=== PATIENT | male | born 1985 ===

== ENCOUNTER 2017-09-09 19:55 | Emergency (ER) | payer SELFPAY ==
[~2017-09-09] VITALS: Ht 167.6 cm; Wt 60.0 kg
[2017-09-09 20:09] VITALS: BP 131/90; PULSE 135; RESP 12; TEMP 98.8; O2SAT 97
--- NOTE | 2017-09-09 20:14 | PD ---
HPI Chief Complaint: Psychiatric Symptoms Time Seen by Provider: 20:08 Travel History International Travel<30 days: No Contact w/Intl Traveler<30days: No Traveled to known affect area: No History of Present Illness HPI 32-year-old white male presents emergency department under Bran act by PD. Patient had got into an argument with family. He apparently had been drinking and or doing drugs. He had made suicidal statements that he would go out and drown himself. The patient here is uncooperative. He is unwilling to answer questions. There is no evidence of trauma. He ambulates freely. [facility] Past Medical History Medical History: Unable to Obtain Tetanus Vaccination: Unknown Past Surgical History Surgical History: Unable to Obtain Social History Alcohol Use: Yes Tobacco Use: No Allergies-Medications (Allergen,Severity, Reaction): Coded Allergies: No Allergy Information Available (Unverified , 09/09/17) Review of Systems ROS Limitations: Intoxication, Uncooperative Physical Exam Narrative GENERAL: Well-nourished, well-developed patient. Patient appears intoxicated. Patient is uncooperative. There is no evidence of trauma. Ambulates freely SKIN: Warm and dry. HEAD: Normocephalic and atraumatic. EYES: No scleral icterus. No injection or drainage. ENT: No nasal drainage noted. Mucous membranes pink. Airway patent. NECK: Supple, trachea midline. Moves head freely without obvious discomfort. CARDIOVASCULAR: Regular rate and rhythm without murmurs, gallops, or rubs. RESPIRATORY: Breath sounds equal bilaterally. No accessory muscle use. GASTROINTESTINAL: Abdomen soft, non-tender, nondistended. EXTREMITIES: No cyanosis or edema. BACK: Nontender without obvious deformity. No CVA tenderness. NEURO: Patient is alert and oriented. no sensorimotor deficits. Nonfocal. Slurred speech. PSYCH: No delusions. No auditory or visual hallucinations. Data Data Last Documented VS Vital Signs Date Time Temp Pulse Resp B/P (MAP) Pulse Ox O2 Delivery O2 Flow Rate FiO2 09/09/17 22:24 100 18 102/59 (73) 96 Room Air 09/09/17 20:09 98.8 Orders Orders Complete Blood Count With Diff (09/09/17 20:10) Comprehensive Metabolic Panel (09/09/17 20:10) Thyroid Stimulating Hormone (09/09/17 20:10) Psych Screen (09/09/17 20:10) Drug Screen, Random Urine (09/09/17 20:10) Alcohol (Ethanol) (09/09/17 20:10) Haloperidol Inj (Haldol Inj) (09/09/17 20:45) Lorazepam Inj (Ativan Inj) (09/09/17 20:45) Labs Laboratory Tests Test 09/09/17 20:10 09/09/17 23:53 White Blood Count 3.3 TH/MM3 Red Blood Count 4.71 MIL/MM3 Hemoglobin 14.5 GM/DL Hematocrit 42.8 % Mean Corpuscular Volume 90.8 FL Mean Corpuscular Hemoglobin 30.8 PG Mean Corpuscular Hemoglobin Concent 33.9 % Red Cell Distribution Width 12.2 % Platelet Count 178 TH/MM3 Mean Platelet Volume 8.1 FL Neutrophils (%) (Auto) 36.5 % Lymphocytes (%) (Auto) 52.7 % Monocytes (%) (Auto) 10.0 % Eosinophils (%) (Auto) 0.6 % Basophils (%) (Auto) 0.2 % Neutrophils # (Auto) 1.2 TH/MM3 Lymphocytes # (Auto) 1.8 TH/MM3 Monocytes # (Auto) 0.3 TH/MM3 Eosinophils # (Auto) 0.0 TH/MM3 Basophils # (Auto) 0.0 TH/MM3 CBC Comment DIFF FINAL Differential Comment Blood Urea Nitrogen 5 MG/DL Creatinine 0.87 MG/DL Random Glucose 115 MG/DL Total Protein 7.5 GM/DL Albumin 4.3 GM/DL Calcium Level 8.3 MG/DL Alkaline Phosphatase 26 U/L Aspartate Amino Transf (AST/SGOT) 28 U/L Alanine Aminotransferase (ALT/SGPT) 26 U/L Total Bilirubin 0.4 MG/DL Sodium Level 144 MEQ/L Potassium Level 3.2 MEQ/L Chloride Level 107 MEQ/L Carbon Dioxide Level 27.0 MEQ/L Anion Gap 10 MEQ/L Estimat Glomerular Filtration Rate 102 ML/MIN Thyroid Stimulating Hormone 3rd Gen 0.669 uIU/ML Ethyl Alcohol Level 337 MG/DL MDM Medical Decision Making Medical Screen Exam Complete: Yes Emergency Medical Condition: Yes Medical Record Reviewed: Yes Interpretation(s) Laboratory Tests Test 09/09/17 20:10 09/09/17 23:53 White Blood Count 3.3 TH/MM3 Red Blood Count 4.71 MIL/MM3 Hemoglobin 14.5 GM/DL Hematocrit 42.8 % Mean Corpuscular Volume 90.8 FL Mean Corpuscular Hemoglobin 30.8 PG Mean Corpuscular Hemoglobin Concent 33.9 % Red Cell Distribution Width 12.2 % Platelet Count 178 TH/MM3 Mean Platelet Volume 8.1 FL Neutrophils (%) (Auto) 36.5 % Lymphocytes (%) (Auto) 52.7 % Monocytes (%) (Auto) 10.0 % Eosinophils (%) (Auto) 0.6 % Basophils (%) (Auto) 0.2 % Neutrophils # (Auto) 1.2 TH/MM3 Lymphocytes # (Auto) 1.8 TH/MM3 Monocytes # (Auto) 0.3 TH/MM3 Eosinophils # (Auto) 0.0 TH/MM3 Basophils # (Auto) 0.0 TH/MM3 CBC Comment DIFF FINAL Differential Comment Blood Urea Nitrogen 5 MG/DL Creatinine 0.87 MG/DL Random Glucose 115 MG/DL Total Protein 7.5 GM/DL Albumin 4.3 GM/DL Calcium Level 8.3 MG/DL Alkaline Phosphatase 26 U/L Aspartate Amino Transf (AST/SGOT) 28 U/L Alanine Aminotransferase (ALT/SGPT) 26 U/L Total Bilirubin 0.4 MG/DL Sodium Level 144 MEQ/L Potassium Level 3.2 MEQ/L Chloride Level 107 MEQ/L Carbon Dioxide Level 27.0 MEQ/L Anion Gap 10 MEQ/L Estimat Glomerular Filtration Rate 102 ML/MIN Thyroid Stimulating Hormone 3rd Gen 0.669 uIU/ML Ethyl Alcohol Level 337 MG/DL Differential Diagnosis MDM: High Differential diagnoses: Schizophrenia, schizoaffective disorder, bipolar, anxiety, depression, adjustment reaction, mood disorder NOS, ODD, depressive disorder NOS, dementia, dementia with agitation, psychosis NOS, substance induced mood disorder, DMDD, Asperger syndrome, infection,electrolyte abnormality, malingering. Narrative Course Mental health screening discussed with the patient. Psychiatric screen ordered. The patient is uncooperative to history and exam. He does not appear to be suffering from acute injury. He is under the influence. We will obtain screening laboratory tests. This is medical clearance for psychiatric admission Diagnosis Primary Impression: Medical clearance for psychiatric admission Additional Impression: Alcohol intoxication Condition: Stable Ernesto Paz Sep 09, 2017 20:14
[2017-09-09] MEDS ORDERED: HALOPERIDOL LACTATE 5 MG/ML AMP IM ONE (20:45)
[2017-09-09] MEDS ORDERED: LORazepam 2 MG/ML VIAL IM ONE (20:45)
[2017-09-09 21:02] LABS: AUTOMATED NEUTROPHIL # 1.2 TH/MM3 (1.8-7.7); BASOPHIL % 0.2 % (0.0-2.0); EOSINOPHIL % 0.6 % (0.0-4.0); HEMATOCRIT 42.8 % (39.0-51.0); HEMOGLOBIN 14.5 GM/DL (13.0-17.0); LYMPH % 52.7 % (9.0-44.0); LYMPHOCYTE # 1.8 TH/MM3 (1.0-4.8); MEAN CELL VOLUME 90.8 FL (80.0-100.0); MEAN CORPUSCULAR HEMOGLOBIN 30.8 PG (27.0-34.0); MEAN CORPUSCULAR HGB CONC 33.9 % (32.0-36.0); MEAN PLATELET VOLUME 8.1 FL (7.0-11.0); MONOCYTE # 0.3 TH/MM3 (0-0.9); NEUT % 36.5 % (16.0-70.0); PLATELET COUNT 178 TH/MM3 (150-450); RED BLOOD COUNT 4.71 MIL/MM3 (4.50-5.90); RED CELL DISTRIBUTION WIDTH 12.2 % (11.6-17.2); WHITE BLOOD COUNT 3.3 TH/MM3 (4.0-11.0)
[2017-09-09 21:24] LABS: ALBUMIN 4.3 GM/DL (3.4-5.0); AST (GOT) 28 U/L (15-37); BLOOD UREA NITROGEN 5 MG/DL (7-18); CALCIUM 8.3 MG/DL (8.5-10.1); CHLORIDE 107 MEQ/L (98-107); CREATININE 0.87 MG/DL (0.60-1.30); GLOMERULAR FILTRATION RATE 102 ML/MIN (>89); GLUCOSE,RANDOM 115 MG/DL (74-106); SODIUM (NA) 144 MEQ/L (136-145)
[2017-09-09 21:25] LABS: ALT (GPT) 26 U/L (12-78)
[2017-09-09 21:35] LABS: ALKALINE PHOSPHATASE 26 U/L (45-117); TOTAL BILIRUBIN ADULT 0.4 MG/DL (0.2-1.0); TOTAL PROTEIN 7.5 GM/DL (6.4-8.2)
[2017-09-09 22:24] VITALS: BP 102/59; PULSE 100; RESP 18; O2SAT 96
[2017-09-10 06:24] VITALS: BP 119/75; PULSE 115; RESP 18; O2SAT 99
--- NOTE | 2017-09-10 12:10 | PD ---
Physical Exam Date Seen by Provider: Sep 10, 2017 Time Seen by Provider: 12:09 Data Data Last Documented VS Vital Signs Date Time Temp Pulse Resp B/P (MAP) Pulse Ox O2 Delivery O2 Flow Rate FiO2 09/10/17 06:24 115 18 119/75 (90) 99 Room Air 09/09/17 20:09 98.8 Orders Orders Complete Blood Count With Diff (09/09/17 20:10) Comprehensive Metabolic Panel (09/09/17 20:10) Thyroid Stimulating Hormone (09/09/17 20:10) Psych Screen (09/09/17 20:10) Drug Screen, Random Urine (09/09/17 20:10) Alcohol (Ethanol) (09/09/17 20:10) Haloperidol Inj (Haldol Inj) (09/09/17 20:45) Lorazepam Inj (Ativan Inj) (09/09/17 20:45) Diet Regular Basic (09/10/17 Breakfast) Diet Regular Basic (09/10/17 Lunch) Labs Laboratory Tests Test 09/09/17 20:10 09/09/17 23:53 White Blood Count 3.3 TH/MM3 Red Blood Count 4.71 MIL/MM3 Hemoglobin 14.5 GM/DL Hematocrit 42.8 % Mean Corpuscular Volume 90.8 FL Mean Corpuscular Hemoglobin 30.8 PG Mean Corpuscular Hemoglobin Concent 33.9 % Red Cell Distribution Width 12.2 % Platelet Count 178 TH/MM3 Mean Platelet Volume 8.1 FL Neutrophils (%) (Auto) 36.5 % Lymphocytes (%) (Auto) 52.7 % Monocytes (%) (Auto) 10.0 % Eosinophils (%) (Auto) 0.6 % Basophils (%) (Auto) 0.2 % Neutrophils # (Auto) 1.2 TH/MM3 Lymphocytes # (Auto) 1.8 TH/MM3 Monocytes # (Auto) 0.3 TH/MM3 Eosinophils # (Auto) 0.0 TH/MM3 Basophils # (Auto) 0.0 TH/MM3 CBC Comment DIFF FINAL Differential Comment Blood Urea Nitrogen 5 MG/DL Creatinine 0.87 MG/DL Random Glucose 115 MG/DL Total Protein 7.5 GM/DL Albumin 4.3 GM/DL Calcium Level 8.3 MG/DL Alkaline Phosphatase 26 U/L Aspartate Amino Transf (AST/SGOT) 28 U/L Alanine Aminotransferase (ALT/SGPT) 26 U/L Total Bilirubin 0.4 MG/DL Sodium Level 144 MEQ/L Potassium Level 3.2 MEQ/L Chloride Level 107 MEQ/L Carbon Dioxide Level 27.0 MEQ/L Anion Gap 10 MEQ/L Estimat Glomerular Filtration Rate 102 ML/MIN Thyroid Stimulating Hormone 3rd Gen 0.669 uIU/ML Ethyl Alcohol Level 337 MG/DL Urine Opiates Screen NEG Urine Barbiturates Screen NEG Urine Amphetamines Screen NEG Urine Benzodiazepines Screen NEG Urine Cocaine Screen NEG Urine Cannabinoids Screen NEG MDM Supervised Visit with TRAMAINE: No Narrative Course 61-year-old male brought to the ED under Bran act for psychiatric evaluation. Patient was initially evaluated by Simon Ferguson PA-C and medically cleared. He was then evaluated by Chayito Swenson ornamental metal worker apprentice. The Bran act was lifted. Patient diagnosed with alcohol induced mood disorder. He is instructed to follow-up Johan Nguyen. He is stable and discharged home. Diagnosis Primary Impression: Medical clearance for psychiatric admission Additional Impression: Alcohol intoxication Referrals: [facility] Additional Instruction: Follow-up with Johan Nguyen. Return to the ED for any urgent or emergent medical condition. Disposition: 01 DISCHARGE HOME Condition: Stable Elizabeth Warner Sep 10, 2017 12:10
--- NOTE | 2017-09-10 12:34 | PD ---
History of Present Illness Chief Complaint: Suicide Ideation/Attempt Time Seen by Provider: 11:49 Travel History International Travel<30 Days: No Contact w/Intl Traveler<30days: No Known affected area: No Legal Status Legal Status: Bran Act Bran Act Signed By: Myrna Portillo Bran Act Comment: 2017 @ 1930 History of Present Illness: This is a 32 year-old single, male. who was brought to this facility under a Bran Act that was initiated by the PD which reads: WITNESS/ FAMILY FRIEND STATED KLAUS TOLD HER SEVERAL TIMES THAT THE WORLD WOULD BE BETTER WITHOUT HIM. KLAUS ADMITTED TO TELLING HIS MOTHER THAT HE WANTED TO KILL HIMSELF BY JUMPING IN THE OCEAN. He has not previously been seen or treated at this facility. Reviewed electronic medical record, labs, and discussed case with staff. Patient's BAL was .337 upon his arrival last night. Upon examination today, patient is awake, alert, and oriented. His speech is clear, logical, and organized. His mood is good and his affect is euthymic. He states "I got really drunk and said something about walking into the ocean". He reports that he drank 4 loco last night and then began making vague suicidal statements. Patient does advise that this has happened one time previously where he had been bran acted for making vague suicidal statements while intoxicated. He denies any attempts at suicide, and reports that he drinks alcohol ~ 1-2 times per month. Today he denies SI, HI, and hallucinations. I can elicit no delusional material. There is no indication of internal stimulation nor thought blocking. He states that he has a "good" relationship with his mother, resides with a friend of his mother's and is currently unemployed. PFSH Past Medical History Medical History: Unable to Obtain Tetanus Vaccination: Unknown ?: Not Past Surgical History Surgical History: Unable to Obtain Hysterectomy: No Psychiatric History Psychiatric History Denies, other than one previous Bran act while intoxicated for making suicidal statements. Denies suicide attempts. History of Inpatient Treatment: No Guns or firearms in home: No Social History Hx Alcohol Use: Yes Hx Tobacco Use: No Hx Substance Use: No Family Psychiatric History Denies familial history of mental illness or suicide attempts. Allergies-Medications (Allergen,Severity, Reaction): Coded Allergies: No Allergy Information Available (Unverified , 09/09/17) Review of Systems Except as stated in HPI: all other systems reviewed are Neg Mental Status Examination Appearance: Disheveled Consciousness: Alert Orientation: x4 Motor Activity: Normal gait Speech: Unremarkable Language: Adequate Fund of Knowledge: Adequate Attention and Concentration: Adequate Memory: Unremarkable Mood: Appropriate, Good Affect: Appropriate, Euthymic Thought Process & Associations: Intact Thought Content: Appropriate Hallucination Type: None Delusion Type: None Suicidal Ideation: No Suicidal Plan: No Suicidal Intention: No Homicidal Ideation: No Homicidal Plan: No Homicidal Intention: No Insight: Fair Judgment: Impulsive MDM Medical Decision Making Medical Record Reviewed: Yes Assessment/Plan This is a 32 year-old single, male. who was brought to this facility under a Bran Act that was initiated by the PD which reads: WITNESS/ FAMILY FRIEND STATED KLAUS TOLD HER SEVERAL TIMES THAT THE WORLD WOULD BE BETTER WITHOUT HIM. KLAUS ADMITTED TO TELLING HIS MOTHER THAT HE WANTED TO KILL HIMSELF BY JUMPING IN THE OCEAN. He has not previously been seen or treated at this facility. Reviewed electronic medical record, labs, and discussed case with staff. Patient's BAL was .337 upon his arrival last night. Upon examination today, patient is awake, alert, and oriented. His speech is clear, logical, and organized. His mood is good and his affect is euthymic. He states "I got really drunk and said something about walking into the ocean". He reports that he drank 4 loco last night and then began making vague suicidal statements. Patient does advise that this has happened one time previously where he had been bran acted for making vague suicidal statements while intoxicated. He denies any attempts at suicide, and reports that he drinks alcohol ~ 1-2 times per month. Today he denies SI, HI, and hallucinations. I can elicit no delusional material. There is no indication of internal stimulation nor thought blocking. He states that he has a "good" relationship with his mother, resides with a friend of his mother's and is currently unemployed. At this time, patient no longer endorses SI. The vague statements "the world would be a better place without me" were in the context of his intoxication. Upon sobering up he expresses that he no longer feels this way. He reports that his drinking is only 1-2 times per month, and has a support system in place. He no longer meets the Bran act criteria nor admission criteria. Chayito Swenson NP was present for the evaluation and concurs with this assessment. She has lifted the Bran act. He will be discharged to home with a referral to [facility]. He has been counseled on the potential dangers of alcohol usage. He contracts for safety. He will be advised to return to this facility should his condition worsen. Orders Orders Complete Blood Count With Diff (09/09/17 20:10) Comprehensive Metabolic Panel (09/09/17 20:10) Thyroid Stimulating Hormone (09/09/17 20:10) Psych Screen (09/09/17 20:10) Drug Screen, Random Urine (09/09/17 20:10) Alcohol (Ethanol) (09/09/17 20:10) Haloperidol Inj (Haldol Inj) (09/09/17 20:45) Lorazepam Inj (Ativan Inj) (09/09/17 20:45) Diet Regular Basic (09/10/17 Breakfast) Diet Regular Basic (09/10/17 Lunch) Ed Discharge Order (09/10/17 12:11) Results Vital Signs Date Time Temp Pulse Resp B/P (MAP) Pulse Ox O2 Delivery O2 Flow Rate FiO2 09/10/17 06:24 115 18 119/75 (90) 99 Room Air 09/09/17 22:24 100 18 102/59 (73) 96 Room Air 09/09/17 20:09 98.8 135 12 131/90 (104) 97 Laboratory Tests Test 09/09/17 20:10 09/09/17 23:53 White Blood Count 3.3 Red Blood Count 4.71 Hemoglobin 14.5 Hematocrit 42.8 Mean Corpuscular Volume 90.8 Mean Corpuscular Hemoglobin 30.8 Mean Corpuscular Hemoglobin Concent 33.9 Red Cell Distribution Width 12.2 Platelet Count 178 Mean Platelet Volume 8.1 Neutrophils (%) (Auto) 36.5 Lymphocytes (%) (Auto) 52.7 Monocytes (%) (Auto) 10.0 Eosinophils (%) (Auto) 0.6 Basophils (%) (Auto) 0.2 Neutrophils # (Auto) 1.2 Lymphocytes # (Auto) 1.8 Monocytes # (Auto) 0.3 Eosinophils # (Auto) 0.0 Basophils # (Auto) 0.0 CBC Comment DIFF FINAL Differential Comment Blood Urea Nitrogen 5 Creatinine 0.87 Random Glucose 115 Total Protein 7.5 Albumin 4.3 Calcium Level 8.3 Alkaline Phosphatase 26 Aspartate Amino Transf (AST/SGOT) 28 Alanine Aminotransferase (ALT/SGPT) 26 Total Bilirubin 0.4 Sodium Level 144 Potassium Level 3.2 Chloride Level 107 Carbon Dioxide Level 27.0 Anion Gap 10 Estimat Glomerular Filtration Rate 102 Thyroid Stimulating Hormone 3rd Gen 0.669 Ethyl Alcohol Level 337 Urine Opiates Screen NEG Urine Barbiturates Screen NEG Urine Amphetamines Screen NEG Urine Benzodiazepines Screen NEG Urine Cocaine Screen NEG Urine Cannabinoids Screen NEG Diagnosis Primary Impression: Alcohol abuse with alcohol-induced mood disorder Psychiatrically Cleared: Yes Referrals: [facility] Additional Instructions: Follow-up with Johan Nguyen. Return to the ED for any urgent or emergent medical condition. Disposition: 01 DISCHARGE HOME Condition: Stable Kecia Wright Sep 10, 2017 12:34
== END 2017-09-10 12:39 | disposition home or self-care (01) ==
LOC: NEPJ 19:55
DX: F10.14 Alcohol abuse with alcohol-induced mood disorder (principal); Y90.8 Blood alcohol level of 240 mg/100 ml or more
CPT/HCPCS: 80053; 80307; 84443; 85025; 96372; 99284; J1630; J2060